=== PATIENT | male | born 1965 | race Caucasian/White ===

== ENCOUNTER 2017-02-01 21:27 | Emergency (ER) | payer OTHER ==
[~2017-02-01] VITALS: Ht 190.5 cm; Wt 84.0 kg
[2017-02-01 21:28] VITALS: BP 140/85
[2017-02-01] MEDS ORDERED: CEFAZOLIN 1,000 MG IM ONE (22:00)
[2017-02-01] MEDS ORDERED: SULFAMETH./TRIMETHOPRIM DS 800MG/160MG TABLET PO ONE (22:00)
[2017-02-01] MEDS ORDERED: SULFAMETH./TRIMETHOPRIM DS 800MG/160MG TABLET ONE (22:16)
[2017-02-01] MEDS ORDERED: CEFAZOLIN 1,000 MG ONE (22:17)
[2017-02-01] MEDS ORDERED: IBUPROFEN 200 MG TABLET ONE (23:21)
[2017-02-01] MEDS ORDERED: IBUPROFEN 200 MG TABLET PO ONE (23:30)
== END 2017-02-01 23:35 | disposition home or self-care (01) ==
LOC: ED 23:29
DX: L03.113 Cellulitis of right upper limb (principal)
CPT/HCPCS: 96372; 99283; J0690

== ENCOUNTER 2017-02-01 23:41 | Emergency (ER) | payer OTHER ==
[~2017-02-01] VITALS: Ht 182.9 cm; Wt 84.6 kg
[2017-02-01 23:43] VITALS: BP 174/111
== END 2017-02-01 23:57 | disposition left against medical advice (07) ==
LOC: ED 23:46
DX: Z53.21 Procedure and treatment not carried out due to patient leaving prior to being seen by health care provider (principal)